=== PATIENT | male | born 1955 | race Caucasian/White ===

== ENCOUNTER 2017-01-01 10:05 | Day surgery (SDC) | payer OTHER ==
[~2017-01-01] VITALS: Ht 200.7 cm; Wt 96.0 kg
[~2017-01-01 10:05] MED LIST: 0.9% Sodium Chloride 1,000 ML IV SCH; CETI10CA PO; IBUP800T28 PO; Sodium Chloride LOK Flush 10 mL Syringe IV PRN; fentaNYL-PF 50 mCg/mL 2 mL Inj IVPUSH PRN
[2017-01-01] MEDS ORDERED: ASPI-973 PO (10:20)
[2017-01-01 10:31] VITALS: BP 118/74; PULSE 50; RESP 12; O2SAT 95
[2017-01-01 11:07] VITALS: BP 111/69; PULSE 54; RESP 14; O2SAT 96
[2017-01-01 11:17] VITALS: BP 106/67; PULSE 58; RESP 14; O2SAT 97
[2017-01-01 11:23] VITALS: BP 101/65; PULSE 56; RESP 12; O2SAT 97
--- NOTE | 2017-01-01 12:31 | ENDO ---
[address] [address] ENDOSCOPY PROCEDURE PATIENT: JEAN-PAUL DC : 1955 MR#: [id number] ADMIT: 01/01/2017 JOB ID: [id number] DATE OF SERVICE: 01/01/2017 PROCEDURE: Colonoscopy. INDICATIONS: Screening. ASA CLASSIFICATION: I MALLAMPATI SCORE: 2 MEDICATIONS: Versed 4 mg, fentanyl 75 mcg. INSTRUMENT USED: PCF-[id number]. PREPARATION QUALITY: Fair. PROCEDURE DETAILS: After informed consent was obtained, the patient was brought into the GI suite where he was placed on oxygen via nasal cannula and monitored with continuous pulse oximeter, telemetry, and blood pressure monitoring. A time-out was performed. Then, he was placed in a left lateral decubitus position and medications were administered for sedation. Digital rectal exam with palpation of the prostate was performed, which was unremarkable. The colonoscope was then inserted into the rectum and advanced under direct visualization to the cecum, which was identified by the presence of the ileocecal valve and appendiceal orifice. Once the cecum was reached, colonoscope was withdrawn back into the rectum as the mucosa and lumen were examined. In the rectum, retroflexion was performed. Following retroflexion, remaining air in the rectum was suctioned procedure was completed. FINDINGS: In the ascending colon, there was an approximately 4 mm sessile polyp that was removed with a cold snare. Otherwise normal exam from rectum to cecum. IMPRESSION: Ascending colon polyp. RECOMMENDATIONS: Repeat colonoscopy in five years. COMPLICATIONS: None. ESTIMATED BLOOD LOSS: Less than 5 mL. CC: Dr. Troy Carbone; unknown, unknown
--- NOTE | 2017-01-04 15:08 | PATH ---
SURGICAL PATHOLOGY Attending Physician:Jodie Sauceda CASE STATUS: Signed Out PATIENT NAME: JEAN-PAUL DC PID: [id number] : 1955 DATE COLLECTED:01/01/2017 17:59 SPECIMEN: Colon, Polyp CLINICAL HISTORY: SCREENING, COLON POLYP 1). ASCENDING COLON POLYP FINAL DIAGNOSIS: 1.ASCENDING COLON POLYP: TUBULAR ADENOMA. ICD10 D12.2 GROSS DESCRIPTION: The specimen is received in formalin, labeled with the patient's name, sublabeled as ascending colon polyp and consists of a yañez-white glistening rubbery sessile polyp (0.3 x 0.3 x 0.2 cm). Section code: (A) polyp, bisected. Specimen entirely submitted. 01/02/17 JM MICRO DESCRIPTION: See diagnosis. ICD-9 CODES: CPT CODES: 1: 04898 Electronically Signed Out Trell Clifton MD [facility] [address], [place] [address] Technical component performed at [facility], [facility] [address], [place], [address]
== END 2017-01-01 23:59 | disposition home or self-care (01) ==
LOC: END 10:05
PROVIDERS: ATTEND Internal Medicine Gastroenterology
DX: Z12.11 Encounter for screening for malignant neoplasm of colon (principal); D12.2 Benign neoplasm of ascending colon; Z87.891 Personal history of nicotine dependence
CPT/HCPCS: 45385; 99153; G0500; J2250; J3010; J7030